=== PATIENT | male | born 1985 | race Caucasian/White ===

== ENCOUNTER 2016-06-18 12:48 | Outpatient (CLI) | payer MEDICAID | END 2016-06-18 12:49 | disposition short-term general hospital (02) | DX: R11.2 Nausea with vomiting, unspecified (principal); I25.2 Old myocardial infarction | CPT/HCPCS: A0425; A0429 ==

== ENCOUNTER 2016-12-24 13:16 | Outpatient (CLI) | payer MEDICAID | END 2016-12-24 13:17 | disposition EMS.NT | LOC: EMS 13:16 | PROVIDERS: ATTEND Surgery | DX: R51 Headache (principal); R07.89 Other chest pain; V49.50XA Passenger injured in collision with unspecified motor vehicles in traffic accident, initial encounter; Y92.413 State road as the place of occurrence of the external cause ==

== ENCOUNTER 2016-12-24 14:28 | Outpatient (CLI) | payer OTHER, MEDICAID | END 2016-12-24 14:29 | disposition short-term general hospital (02) | LOC: EMS 14:28 | PROVIDERS: ATTEND Surgery | DX: R51 Headache (principal); R10.9 Unspecified abdominal pain; R11.0 Nausea; K08.89 Other specified disorders of teeth and supporting structures | CPT/HCPCS: A0425; A0429 ==